=== PATIENT | female | born 1960 | race African-American/Black ===

== ENCOUNTER 2016-09-21 21:41 | Emergency (ER) | payer MEDICAID ==
[~2016-09-21] VITALS: Ht 165.1 cm; Wt 84.4 kg
[2016-09-21] MEDS ORDERED: NAPROXEN250 M1 PO (22:15)
[2016-09-21] MEDS ORDERED: NASONEX17 GM NASAL (22:50)
[2016-09-21] MEDS: Oxymetazoline 0.05% Na Spray 30ml NASAL ONE (22:55)
[2016-09-21 22:59] VITALS: BP 116/75
--- NOTE | 2016-09-22 02:58 | Emergency Room Report ---
History of Present Illness General Chief Complaint: Upper Respiratory Illness Source: Patient Present Illness HPI Patient is a 55-year-old female presented after increased nasal congestion. Patient reported having some facial congestion as well as increased cough. Patient stated that she had increased postnasal drip. She denied a fever. Patient said she been sick for approximately 3 weeks. Patient had recently seen her physician and but did not mention this to her doctor. The patient recently had x-rays on her left knee after increased pain. The patient been prescribed nonsteroidal anti-inflammatories. Allergies: Coded Allergies: No Known Allergies (Unverified , 09/21/16) Patient History Reviewed Nursing Documentation: PMH: Agreed, PSxH: Agreed Review of Systems All Other Systems: negative except mentioned in HPI Physical Exam Vital Signs Date Time Temp Pulse Resp B/P Pulse Ox O2 Delivery O2 Flow Rate FiO2 09/21/16 22:09 98.4 95 16 116/75 96 Room Air General Appearance: well appearing, no apparent distress, alert, GCS 15 Head: normocephalic, atraumatic ENT: hearing grossly normal, normal voice, uvula midline, dry mucus membranes Neck: full range of motion, supple Respiratory: lungs clear, normal breath sounds, no respiratory distress, speaking full sentences Cardiovascular #1: normal peripheral pulses, regular rate, rhythm, no edema Gastrointestinal: normal inspection Genitourinary: normal inspection, no CVA tenderness Musculoskeletal: normal inspection, back normal, no calf tenderness Neurologic: normal inspection, alert, oriented x3, responsive, normal gait Psychiatric: mood/affect normal Skin: no rash Medical Decision Making Diagnostic Impression: Primary Impression: Upper respiratory infection ER Course Patient presented for nasal congestion.Differential diagnosis included but was not limited to bronchitis, pneumonia, upper respiratory infection, sinusitis, among other. Patient's benign exam and does not appear to require any further imaging or laboratory testing at this time. Patient given Afrin nasal spray. Patient was given prescription for nasal steroids. The patient is advised followup with her own physician in 2 days for recheck. Patient does not appear to require antibiotics at this time. Patient shows no sinus tenderness to percussion. Last Vital Signs Date Time Temp Pulse Resp B/P Pulse Ox O2 Delivery O2 Flow Rate FiO2 09/21/16 22:59 98.4 96 16 116/75 96 Room Air Status: improved Disposition: HOME, SELF-CARE Condition: Stable Scripts Mometasone Furoate (NASONEX) 17 Gm [place].pump 2 SPRAYS NASAL DAILY, #17 GM 0 Refills Prov: Jose A Blackmon 09/21/16 Referrals: NOT CHOSEN IPA/MD,REFERRING Patient Instructions: Upper Respiratory Infection, Adult Jose A Blackmon Sep 22, 2016 02:58
== END 2016-09-21 23:00 | disposition home or self-care (01) ==
LOC: EMR 22:26
DX: J06.9 Acute upper respiratory infection, unspecified (principal)
CPT/HCPCS: 99283